=== PATIENT | male | born 1955 | race Two or more races ===

== ENCOUNTER → 2016-05-16 | Outpatient (CLI) | payer BC ==
--- NOTE | 2016-05-16 14:31 | RADRPT ---
PROCEDURE: Right knee radiographs. CLINICAL INDICATION: Right knee pain. TECHNIQUE: Four views. Weight bearing. Frontal, lateral, oblique, and patellar view. COMPARISON: No prior studies are available for comparison. FINDINGS: There is no fracture or dislocation. Vascular calcifications are present consistent with atherosclerosis. There are degenerative changes with osteophytes arising from all 3 joint compartment margins. There is medial joint compartment narrowing and subarticular sclerosis. There is no lytic or blastic lesion. There is no radiopaque foreign body. IMPRESSION: 1. Atherosclerosis. 2. Moderate degenerative change. 3. No acute abnormality. RPTAT: QQ .Bayron Dias MD, MD Date Time Electronically viewed and signed by .Bayron Dias MD, MD on 05/16/2016 14:31 .R/
== END | disposition home or self-care (01) ==
LOC: HKI 13:22
PROVIDERS: ATTEND Orthopaedic Surgery
DX: M17.11 Unilateral primary osteoarthritis, right knee (principal); M25.561 Pain in right knee
CPT/HCPCS: 20610; 73564; G0463; J1030

== ENCOUNTER → 2017-01-17 | Outpatient (CLI) | payer BC ==
--- NOTE | 2017-01-17 22:42 | HKNOTE ---
DATE OF SERVICE: 01/17/2017 CHIEF COMPLAINT: 1. Right knee pain. 2. Right shoulder pain. HISTORY OF PRESENT ILLNESS: This is a 62-year-old male who was previously seen by Dr. Mario Gomez. He had a right knee corticosteroid injection on May 16, 2016. He was found to have right knee medial compartment osteoarthritis. He states that the injection helped his pain for several months. He is complaining of pain on the inside of the right knee. He denies any history of trauma. He denies any locking, catching or instability. He does not require any pain medications. He works as a maintenance and operations supervisor and is complaining of right shoulder pain for the last three months. He was lifting a heavy door approximately three months ago when he developed right shoulder pain. The pain is on top of the shoulder. He denies any radiation of the pain. He denies any numbness or weakness. PHYSICAL EXAMINATION: Gait: Nonantalgic gait. Right knee: Neutral alignment, tender over the medial and lateral joint line, nontender over the lateral joint line, 0-120 degrees range of motion. Negative Lukas's. Negative anterior drawer. Negative posterior drawer. Stable to varus, valgus stress. Negative Huang's. Motor strength is 5/5, quadriceps and hamstrings, tibialis anterior, peroneals. Right shoulder: No deformity, tender over the anterior deltoid, 180 degrees of abduction, 180 degrees of forward flexion, 50 degrees of extension, 40 degrees of adduction, 90 degrees external rotation, 90 degrees of internal rotation. Positive Duran. Positive Neer's. IMAGING: Right knee: Three views of the right knee demonstrate medial joint space narrowing. IMPRESSION: A 62-year-old male with right knee osteoarthritis, and right shoulder rotator cuff strain. PLAN: I discussed treatment options with Mr. Braxton after obtaining verbal consent. The right knee was prepped and draped in the usual sterile fashion. An injection of Monovisc was performed under sterile technique into the lateral portal. There were no complications. He tolerated the procedure well. He was instructed to ice and elevate the right knee. He can take ibuprofen as needed. He will return for followup examination in six weeks. Dictated By: Candi Jha MD /[email or web address]/[email or web address] /Document#: [id number]
== END | disposition home or self-care (01) ==
LOC: HKI 14:00
PROVIDERS: ATTEND Orthopaedic Surgery Adult Reconstructive Orthopaedic Surgery
DX: M25.561 Pain in right knee (principal); M25.511 Pain in right shoulder; M17.11 Unilateral primary osteoarthritis, right knee; S43.421A Sprain of right rotator cuff capsule, initial encounter
CPT/HCPCS: 20610; G0463; J7327